=== PATIENT | female | born 1985 | race Caucasian/White ===

== ENCOUNTER 2017-08-28 14:59 | Emergency (ER) | payer MEDICAID ==
[~2017-08-28] VITALS: Ht 152.4 cm; Wt 94.9 kg
[2017-08-28 17:41] LABS: BASOPHILS % 0.6 % (0.0-2.0); EOSINOPHILS % 0.7 % (0.0-5.0); HEMATOCRIT. 37.9 % (36.0-48.0); HEMOGLOBIN. 12.9 g/dL (12.0-16.0); MEAN CORPUSCULAR HEMOGLOBIN 28.6 pg (28.0-32.0); MEAN CORPUSCULAR VOLUME 84.2 fL (81.0-99.0); MEAN PLATELET VOLUME 10.1 fl (7.4-10.4); MONOCYTES % 6.2 % (2.0-8.0); NEUTROPHILS % 64.5 % (40.0-76.0); PLATELET 186 x1000/uL (130-400); RED BLOOD CELL COUNT 4.51 mill/uL (4.2-5.4); RED CELL DISTRIBUTION WIDTH 15.4 % (11.6-14.6)
[2017-08-28 17:47] LABS: PROTHROMBIN TIME 10.5 sec (9.4-11.6)
[2017-08-28 17:50] LABS: CHLORIDE 107 mEq/L (98-107)
[2017-08-28 19:14] VITALS: BP 107/74
== END 2017-08-28 19:16 | disposition home or self-care (01) ==
LOC: ER 16:04
DX: O90.89 Other complications of the puerperium, not elsewhere classified (principal); R07.89 Other chest pain; M54.9 Dorsalgia, unspecified; R51 Headache; Z86.711 Personal history of pulmonary embolism; Z79.01 Long term (current) use of anticoagulants
CPT/HCPCS: 36415; 71045; 80053; 83690; 83880; 84484; 85025; 85379; 85610; 93005; 99285; Z7610

== ENCOUNTER 2018-09-09 13:02 | Emergency (ER) | payer MEDICAID ==
[~2018-09-09] VITALS: Ht 152.4 cm; Wt 108.0 kg
[2018-09-09 16:27] VITALS: BP 19/63
== END 2018-09-09 16:27 | disposition home or self-care (01) ==
LOC: ER 13:02
DX: O26.892 Other specified pregnancy related conditions, second trimester (principal); S63.501A Unspecified sprain of right wrist, initial encounter; X58.XXXA Exposure to other specified factors, initial encounter; Y93.89 Activity, other specified; Y92.89 Other specified places as the place of occurrence of the external cause; Y99.8 Other external cause status; Z88.0 Allergy status to penicillin
CPT/HCPCS: 29125; 99283